=== PATIENT | female | born 1970 ===

== ENCOUNTER → 2020-12-16 14:49 | Outpatient (CLI) | payer OTHER, SELFPAY ==
--- NOTE | ~2020-12-16 | CT_ITS ---
EXAMINATION: CT sinus wo con DATE: 12/16/2020 15:23 INDICATION: Anosmia. Taste of smell changed since Covid. TECHNIQUE: Computed tomography (CT) of the paranasal sinuses was performed without intravenous contra st. The dose-length product was 263.20 mGy-cm. Automated exposure control and iterative reconstructio n technique were employed. COMPARISON: None FINDINGS: No significant mucosal thickening. No air-fluid levels. Ostiomeatal units are patent bilate rally. Mild leftward nasal septal deviation. Mastoids are pneumatized. IMPRESSION: 1. No significant sinus disease. Reviewed, dictated and finalized at location B.
== END ==
PROVIDERS: PCP Internal Medicine; Visit Provider Nurse Practitioner Family
DX: R43.0 Anosmia (principal)
CPT/HCPCS: 70486